=== PATIENT | female | born 1950 | race Caucasian/White ===

== ENCOUNTER 2021-10-27 09:00 | Outpatient (CLI) | payer OTHER | END 2021-10-27 09:15 | disposition home or self-care (01) | LOC: PPH VACUNA 09:00 | PROVIDERS: ATTEND Emergency Medicine Pediatric Emergency Medicine | DX: Z23 Encounter for immunization (principal) ==

== ENCOUNTER 2023-05-09 13:10 | Emergency (ER) | payer OTHER ==
[~2023-05-09] VITALS: Ht 160 cm; Wt 73.9 kg
[2023-05-09] MEDS ORDERED: TENORMIN25 MG PO (13:41)
[2023-05-09] MEDS ORDERED: LEVOTHYROXINE25 MCG PO (13:41)
[2023-05-09] MEDS ORDERED: ZESTRIL10 M1 (13:41)
== END 2023-05-09 18:07 | disposition home or self-care (01) ==
LOC: ER 13:10
DX: U07.1 COVID-19 (principal); B34.9 Viral infection, unspecified; R42 Dizziness and giddiness; I10 Essential (primary) hypertension; E03.8 Other specified hypothyroidism; Z88.6 Allergy status to analgesic agent; Z88.0 Allergy status to penicillin